=== PATIENT | female | born 1980 | race Caucasian/White ===

== ENCOUNTER → 2021-08-20 | Outpatient (CLI) | payer OTHER ==
[~2021-08-20] MED LIST: DOCUSATE SODIU100 MG PO; NAPROXEN250 MG PO; ONE DAILY COMP1 EAC1 PO; PROBIOTIC 2 BI1 EACH PO; ROXICODONE TAB 55 MG PO; ZYRTEC10 MG PO; [UNRECOGNIZED DRUG - REMARK] PO
[2021-08-20 09:54] LABS: HEMOGLOBIN 14.4 gm/dl (12.3-15.3); RED BLOOD COUNT 4.32 M/UL (4.00-5.10); WHITE BLOOD COUNT 6.8 K/UL (4.5-11.0)
== END ==
LOC: OPSV2 09:00
PROVIDERS: Obstetrics & Gynecology
DX: Z01.812 Encounter for preprocedural laboratory examination (principal); R10.2 Pelvic and perineal pain; N94.6 Dysmenorrhea, unspecified
CPT/HCPCS: 81001; 85025

== ENCOUNTER → 2021-08-24 | Day surgery (SDC) | payer OTHER | END | disposition home or self-care (01) | LOC: OR 05:24 | DX: N73.6 Female pelvic peritoneal adhesions (postinfective) (principal); D25.9 Leiomyoma of uterus, unspecified; N94.6 Dysmenorrhea, unspecified; Z79.899 Other long term (current) drug therapy; Z88.0 Allergy status to penicillin; Z88.1 Allergy status to other antibiotic agents; Z91.040 Latex allergy status; Z20.822 Contact with and (suspected) exposure to COVID-19 | CPT/HCPCS: 84703; J1100; J2001; J2250; J2405; J2704; J2710; J2795; J3010; J7120; U0002 ==

== ENCOUNTER → 2021-11-19 | Outpatient (CLI) | payer OTHER ==
[~2021-11-19] MED LIST changes: +COLACE 100MG C100 MG PO; +ROXICODONE5 MG PO
[2021-11-19 11:46] LABS: HEMOGLOBIN 14.3 gm/dl (12.3-15.3); RED BLOOD COUNT 4.52 M/UL (4.00-5.10); WHITE BLOOD COUNT 8.2 K/UL (4.5-11.0)
== END ==
LOC: OPSV2 11:00
PROVIDERS: Obstetrics & Gynecology
DX: Z01.812 Encounter for preprocedural laboratory examination (principal); R10.2 Pelvic and perineal pain
CPT/HCPCS: 36415; 81001; 85025

== ENCOUNTER → 2021-11-23 | Day surgery (SDC) | payer OTHER | END | disposition home or self-care (01) | LOC: OR 05:11 | DX: D25.9 Leiomyoma of uterus, unspecified (principal); K66.8 Other specified disorders of peritoneum; N73.6 Female pelvic peritoneal adhesions (postinfective); Z20.822 Contact with and (suspected) exposure to COVID-19; Z88.0 Allergy status to penicillin; Z91.040 Latex allergy status | CPT/HCPCS: 84702; C9113; J1100; J1170; J1580; J1885; J2001; J2250; J2270; J2405; J2550; J2704; J2710; J2795; J3010; J7120 ==